=== PATIENT | male | born 1965 | race Caucasian/White ===

== ENCOUNTER → 2020-06-07 | Day surgery (SDC) | payer OTHER ==
[~2020-06-07] MED LIST: BYSTOLIC20 MG PO; CARDURA4 MG PO; CITALOPRAM HBR40 MG PO; COSENTYX P150 MG/1 M SUBQ; COZAAR100 MG PO; NORCO 5-325 TA1 EAC2 PO; PRAVACHOL 20 MG20 M1 PO; SPIRONOLACTONE25 M1 PO; VYVANSE60 MG PO
[2020-06-07 06:39] LABS: CALCIUM 8.5 mg/dL (8.5-10.1); CREATININE 1.2 mg/dL (0.6-1.3); POTASSIUM 3.9 mmol/L (3.5-5.1)
[2020-06-07 06:44] LABS: ALBUMIN 3.8 g/dL (3.4-5.0); TOTAL BILIRUBIN 0.4 mg/dL (<0.1-1.0); TOTAL PROTEIN 7.1 g/dL (6.4-8.2)
--- NOTE | 2020-06-07 11:23 | EKG ---
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 RUDD : 1965 Requested By: Pedro Aguirre Order Number: [id number] Tessa MD: Daniel Abraham Measurements Intervals [place] Rate: 49 P: 16 TX: 189 QRS: -20 QRSD: 107 T: -6 QT: 456 QTc: 412 Interpretive Statements Sinus bradycardia nonspecific t wave changes Inferior infarct, old No previous ECG available for comparison Electronically Signed On 06-07-2020 11:23:19 CDT by Daniel Abraham [email or web address] <ELECTRONICALLY SIGNED> By: Daniel Abraham MD, [facility] 06/07/20 [id number] Daniel Abraham MD, [facility] /EPI
--- NOTE | 2020-06-08 16:06 | PATH ---
[address] [address] PATHOLOGY RPT PROCEDURE Name: LARS CALIX [id number]: 06/07/20 Date of : 61 Discharge: Report #: [id number] Path Case #: [id number] [facility] Accession Number: [id number] . 01 Material submitted: . gallbladder - GALLBLADDER AND CONTENTS . 01 Clinical history: . Calculus of gallbladder . 02 Diagnosis: Gallbladder and contents: - Chronic cholecystitis and cholelithiasis. (LUIS CARLOS:grace; ) [facility] [place] 06/08/2020 1332 Local . 02 Electronically signed: . Victorino Ceron MD, Pathologist NPI- [id number] . 01 Gross description: . The specimen is received in formalin, labeled "Lars Calix, gallbladder and contents". Received is a previously opened/torn gallbladder measuring 5.0 x 3.1 x 1.2 cm in greatest dimensions displaying a pink-chaidez serosal surface. Opening the specimen reveals a velvety, pink-kapoor mucosa with a gallbladder wall thickness of 0.1 cm. Calculi are present displaying a black and friable appearance, and no masses or lesions are noted grossly. [employer] Worker sections, to include the proximal margin, are submitted in cassette A1. (CAA; 06/07/2020) QA/QA 06/07/2020 1701 Local . 02 Pathologist provided ICD-10: K80.10 . 02 CPT . 388990 Specimen Comment: A courtesy copy of this report has been sent to [phone], [phone] Specimen Comment: [phone] Specimen Comment: Report sent to / DR BRENNER Performed at: [address] [facility] [address] [id number] MD Prosper Hodgson MD Phone: [phone] Performed at: 02 [facility] [address] [place] [id number] [place] [address] PATHOLOGY RPT PROCEDURE Name: LARS CALIX Room: [facility] [place].#: [id number] Admission: 06/07/20 Date of : 61 Discharge: Report #: [id number] Path Case #: [id number] MD Victorino Ceron MD Phone: [phone]
--- NOTE | 2020-06-09 12:39 | OP ---
[facility] [address] [place] [address] OPERATIVE REPORT Name: BUCK RUIZ Room: [facility].#: [id number] Admission: 06/07/20 Attend Phys: Pedro Aguirre Discharge: Date of : 61 Report #: [id number] THIS REPORT FOR: //name// cc: Thais Smith Anna S. DO THIS REPORT FOR: //name// CC: Thais Aguirre DATE OF SERVICE: 06/07/2020 PREOPERATIVE DIAGNOSES: Chronic cholecystitis, cholelithiasis. POSTOPERATIVE DIAGNOSES: Chronic cholecystitis, cholelithiasis. OPERATION: Laparoscopic cholecystectomy. SURGEON: Pedro Aguirre MD ANESTHESIA: General. ESTIMATED BLOOD LOSS: Minimal. SPECIMEN: Gallbladder. DESCRIPTION OF PROCEDURE: After informed consent was obtained, the patient was brought to the operating room and placed supine. SCDs were placed and working, preoperative antibiotics were administered, general anesthesia was induced. The abdomen was prepped and draped in the usual sterile fashion. A 10 mm incision was made above the umbilicus. Fascia was incised and a trocar was placed. Pneumoperitoneum was established. Three right upper quadrant 5 mm ports were placed. A left-sided 5 mm trocar was placed as well. The gallbladder was grasped at the fundus and retracted cephalad. He had adherent omentum to the gallbladder, which was peeled off sharply and with cautery. The fundus was grasped and retracted cephalad. Infundibulum was grasped and retracted laterally. I dissected out the cystic duct and cystic artery. I dissected out the cystic plate. Pictures were taken to document this. The cystic duct and artery were clipped and ligated leaving 2 clips on the remaining duct and one on the remaining artery. Gallbladder was then taken off the liver bed with electrocautery. It was placed into an Endopouch and removed. The fascia was then closed with a [id number] 0 Vicryl. Skin was closed with 4-0 Monocryl. Incisions were sealed with Dermabond. COMPLICATIONS: [place] [address] OPERATIVE REPORT Name: BUCK RUIZ Room: [facility].#: [id number] Admission: 06/07/20 Attend Phys: Pedro Aguirre Discharge: Date of : 61 Report #: [id number] DISPOSITION: The patient was taken to recovery in satisfactory condition. <ELECTRONICALLY SIGNED> By: Pedro Aguirre MD 06/09/20 1239 [id number] [id number] Aguirre MD /christina
== END | disposition home or self-care (01) ==
LOC: M.SUR 06:03
PROVIDERS: ATTEND Surgery
DX: K80.10 Calculus of gallbladder with chronic cholecystitis without obstruction (principal); I10 Essential (primary) hypertension; G47.30 Sleep apnea, unspecified; Z11.59 Encounter for screening for other viral diseases; Z98.890 Other specified postprocedural states; Z79.899 Other long term (current) drug therapy